=== PATIENT | female | born 1960 | race Caucasian/White ===

== ENCOUNTER → 2019-12-22 16:55 | Outpatient (CLI) | payer OTHER, SELFPAY ==
--- NOTE | ~2019-12-22 | XR_ITS ---
EXAMINATION: XR pelvis 1-2V EXAM DATE: 12/22/2019 17:31 INDICATION: Low back pain/hx of osteopenia TECHNIQUE: Pelvis frontal projection(s) obtained and reviewed. There is no prior study for compariso n. FINDINGS: There is mild symmetric bilateral hip and sacroiliac joint primary osteoarthritis. There ar e no acute fractures or dislocations identified. Sacrum, sacroiliac joints, sacral arcuate lines are intact. There is no subcutaneous gas. The soft tissue is unremarkable. There are no radiopaque f oreign bodies. IMPRESSION: Mild osteoarthritis. Reviewed, dictated and finalized at location A. IMPRESSION: Mild osteoarthritis.
--- NOTE | ~2019-12-22 | XR_ITS ---
EXAMINATION: XR lumbar spine min 4V EXAM DATE: 12/22/2019 17:31 INDICATION: Low back pain/hx of osteopenia TECHNIQUE: Lumber spine frontal, lateral, bilateral oblique projections. Coned down frontal and lat eral L5-S1 lumbar projections for interpretation. There is no prior study for comparison. FINDINGS: There are thin but intact L5 pars. The vertebral bodies are aligned in the AP dimension. Mo derate loss of the L5-S1 disc height. Otherwise mild lumbar disc disease. Mild to moderate lumbar fac et arthropathy. Mild thoracolumbar dextrocurvature. Paraspinal soft tissue is unremarkable. The verte bral body heights are maintained. Large amount of colonic stool. IMPRESSION: Mild to moderate spondylosis. Constipation. Reviewed, dictated and finalized at location A.
== END ==
PROVIDERS: Visit Provider Chiropractor
DX: M54.5 Low back pain (principal); M47.816 Spondylosis without myelopathy or radiculopathy, lumbar region; K59.00 Constipation, unspecified
CPT/HCPCS: 72110; 72170

== ENCOUNTER → 2020-06-06 04:59 | Outpatient (CLI) | payer OTHER, SELFPAY ==
[2020-06-06 19:03] LABS: SARS-CoV-2 RNA PCR Negative
== END ==
PROVIDERS: Visit Provider Internal Medicine Gastroenterology
DX: Z01.812 Encounter for preprocedural laboratory examination (principal); Z20.822 Contact with and (suspected) exposure to COVID-19
CPT/HCPCS: C9803; U0003; U0005

== ENCOUNTER → 2020-07-11 01:37 | Outpatient (CLI) | payer OTHER, SELFPAY ==
[2020-07-11 18:55] LABS: SARS-CoV-2 RNA PCR Negative
== END ==
PROVIDERS: PCP Family Medicine; Visit Provider Internal Medicine Gastroenterology
DX: Z01.812 Encounter for preprocedural laboratory examination (principal); Z20.822 Contact with and (suspected) exposure to COVID-19
CPT/HCPCS: C9803; U0003; U0005

== ENCOUNTER 2020-07-14 05:35 | Day surgery (SDC) | payer OTHER, SELFPAY ==
[2020-05-25 13:55] VITALS: BMI 22.4
[2020-07-04 09:33] VITALS: BMI 22.4
[2020-07-14 08:12] VITALS: BP 119/88; PULSE 61; RESP 16; TEMP 36.4; O2SAT 99; BMI 22.4
[2020-07-14] MEDS: LACTATED RINGERS 1,000 ML 150 ML IV CONT (08:35)
--- NOTE | 2020-07-14 08:56 | WPDANESEPPF ---
Anes - Initial Pre Proc Eval Procedure: Operation Date: 07/14/20 09:30 Proposed Procedures p Esophagogastroduodenoscopy - Mandeep Bailey MD Date/Time: 07/14/20 08:56 Surgeon: Mandeep Bailey MD Pre Op Diagnosis: Dysphagia Patient Data Age: 59 Gender: F Height: 5 ft 5 in Weight: 61.3 kg Last Vital Signs Temp 97.6 F 07/14/20 08:12 Pulse 61 07/14/20 08:12 Resp 16 07/14/20 08:12 BP 119/88 07/14/20 08:12 Pulse Ox 99 07/14/20 08:12 Allergies Allergy/AdvReac Type Severity Reaction Status Date / Time azithromycin Allergy Unknown Unknown Verified 07/14/20 08:10 Home Medications Medication Instructions Recorded Confirmed Type calcium carbonate 600 mg calcium 600 mg PO DAILY 04/08/19 07/14/20 History (1,500 mg) tablet cholecalciferol (vitamin D3) 75 3,000 unit PO DAILY 04/08/19 07/14/20 History mcg (3,000 unit) tablet phytonadione (vitamin K1) 5 mg 5 mg PO DAILY 04/13/20 07/14/20 History tablet fluticasone propionate [Flonase] 1 spray INTRANASAL DAILY PRN 05/25/20 07/14/20 History Patient hx anesthesia problems: none Family hx anesthesia problems: none PMFSH Past Medical History Medical History (Updated 05/11/20 @ 10:16 by Mandeep Bailey MD) Colon cancer screening 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 History of vaginal delivery x 3 Hyperlipidemia Osteopenia Vitamin D deficiency Surgical History Surgical History [place] teeth removed Family History Family History Mother Family history of osteoporosis Family history of malignant neoplasm of thyroid Family history of malignant neoplasm of breast in first degree relative, Onset Age: 64 Patient's mother is Sibling Asthma Family history of diabetes mellitus in first degree relative Grandparent Family history of alcoholism Father Family history of diabetes mellitus in first degree relative Patient's father is Diabetes mellitus Family history of type 2 diabetes mellitus, Onset Age: 76 Social History Social History Smoking status: Never smoker Second hand tobacco smoke exposure: No Alcohol intake: current Drinks per week: 1 Substance use: never Substance use type: does not use Living arrangements: with family Gender identity (if verbalized by the patient): Female Spiritual care concerns: No Anes - Eval Final PreProcedure Day of Procedure 07/14/20 08:56 Patient weight: normal Heart: regular rate and rhythm Lungs: clear to auscultation Airway: Mallampati scale class II Neurological: alert and oriented Last oral intake: >/= 8 hours ASA classification: II Emergent: no Anesthetic plan: proceed Anesthesia type and monitoring: general GIVS and standard monitoring Informed Consent: The patient's anesthetic plan and its attendant risks and benefits were discussed with the patient/family/POA. Questions were solicited and answers provided to the satisfaction of the patient/family/POA.
--- NOTE | 2020-07-14 09:29 | PM.HPGS ---
History of Present Illness History of Present Illness Consent: Risks, benefits, and alternatives have been discussed and questions answered. Patient agrees to proceed with procedure. Chief complaint: Dysphagia Narrative: Libertad Schulz is a 59 year old female with dysphagia Review of Systems Constitutional: Constitutional: Denies headache(s) and Denies weakness Eyes: Eyes: Denies blurry vision ENT: Reports Normal hearing present, Denies headache(s) and Denies neck pain Cardiovascular: Cardiovascular: Denies chest pain and Denies dyspnea Respiratory: Respiratory: Denies dyspnea Gastrointestinal: Gastrointestinal: Reports no additional gastrointestinal complaints Genitourinary: Genitourinary: Denies dysuria Musculoskeletal: Musculoskeletal: Denies neck pain Integumentary/Breasts: Skin/Breast: Denies dry skin Neurologic: Reports Normal hearing present, Denies headache(s) and Denies weakness Psychiatric: Psychiatric: Denies anxiety Endocrine: Endocrine: Denies change in body appearance Hematologic/Lymphatic: Hematologic/Lymphatic: Denies easy bleeding Allergic/Immunologic: Allergic/Immunologic: Denies urticaria PMF Past Medical History Medical History (Updated 07/14/20 @ 09:29 by Mandeep Bailey MD) Colon cancer screening Dysphagia 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 History of vaginal delivery x 3 Hyperlipidemia Osteopenia Vitamin D deficiency Surgical History Surgical History [place] teeth removed Family History Family History Mother Family history of osteoporosis Family history of malignant neoplasm of thyroid Family history of malignant neoplasm of breast in first degree relative, Onset Age: 64 Patient's mother is Sibling Asthma Family history of diabetes mellitus in first degree relative Grandparent Family history of alcoholism Father Family history of diabetes mellitus in first degree relative Patient's father is Diabetes mellitus Family history of type 2 diabetes mellitus, Onset Age: 76 Social History Social History Smoking status: Never smoker Second hand tobacco smoke exposure: No Alcohol intake: current Drinks per week: 1 Substance use: never Substance use type: does not use Living arrangements: with family Gender identity (if verbalized by the patient): Female Spiritual care concerns: No Meds Home Medications and Allergies Home Medications Medication Instructions Recorded Confirmed Type calcium carbonate 600 mg calcium 600 mg PO DAILY 04/08/19 07/14/20 History (1,500 mg) tablet cholecalciferol (vitamin D3) 75 3,000 unit PO DAILY 04/08/19 07/14/20 History mcg (3,000 unit) tablet phytonadione (vitamin K1) 5 mg 5 mg PO DAILY 04/13/20 07/14/20 History tablet fluticasone propionate [Flonase] 1 spray INTRANASAL DAILY PRN 05/25/20 07/14/20 History Allergies Allergy/AdvReac Type Severity Reaction Status Date / Time azithromycin Allergy Unknown Unknown Verified 07/14/20 08:10 Vital Signs Vital Signs - 24 hr 07/14/20 08:12 Temperature 97.6 F Pulse Rate 61 Respiratory Rate 16 Blood Pressure 119/88 Pulse Oximetry 99 Exam Const: General: comfortable and no acute distress HENMT: General nose exam: Normal nares present Eyes: General: appearance normal, both eyes and all related structures Neck: Neck: no JVD Resp: Auscultation: clear to auscultation bilaterally Cardio: Rate: regular rate Rhythm: regular rhythm GI: Inspection: non-distended GI Palp: Yes Soft to palpation Skin: General skin exam: normal color Neuro: General: gait normal Speech: normal speech Extrem: General: normal to inspection Psych: Mental Status: mental status grossly normal Assessment and Plan Assessment and pl
[2020-07-14] MEDS: BENZOCAINE (*SP) 60 ML SPRAY CAN (HURRICAINE) 1 SPRAY MUCOUS MEM (09:32)
[2020-07-14 09:41] VITALS: BP 121/68; PULSE 72; RESP 15; O2SAT 98
[2020-07-14 09:51] VITALS: BP 100/99; PULSE 57; RESP 23
[2020-07-14 10:01] VITALS: BP 102/69; PULSE 54; RESP 22; O2SAT 100
== END 2020-07-14 10:50 | disposition home or self-care (01) ==
PROVIDERS: PCP Family Medicine; Visit Provider Internal Medicine Gastroenterology
PROC: 0DJ08ZZ Inspection of Upper Intestinal Tract, Via Natural or Artificial Opening Endoscopic (ICD-10-PCS; CPT 43235; principal; 2020-07-14 09:30)
DX: R13.10 Dysphagia, unspecified (principal); K29.50 Unspecified chronic gastritis without bleeding; E06.3 Autoimmune thyroiditis; E78.5 Hyperlipidemia, unspecified; E55.9 Vitamin D deficiency, unspecified; M85.80 Other specified disorders of bone density and structure, unspecified site
CPT/HCPCS: 43239; 87081; 88305; J2704; J7120

== ENCOUNTER 2021-09-03 09:12 | Emergency (ER) | payer OTHER, SELFPAY ==
--- NOTE | 2021-09-03 09:20 | ED.SKABFB ---
HPI - Skin/Abscess/Foreign Bdy General Chief complaint: Skin/Abscess/Foreign Body Stated complaint: stung by insect right hand middle finger Time Seen by Provider: 09/03/21 09:22 Source: patient Mode of arrival: ambulatory Limitations: no limitations History of Present Illness HPI narrative: 61-year-old female presented for complaint of right middle finger pain and swelling after insect bite 3 days ago. She states that she reached into her hair when she was stung by an insect. Since then the finger has become increasingly swollen and painful. She has applied ice to the site but not taken anything for symptoms. Denies nausea, vomiting, fevers or chills. MD complaint: rash Related Data Home Medications Medication Instructions Recorded Confirmed calcium carbonate 600 mg calcium 600 mg PO DAILY 04/08/19 04/19/21 (1,500 mg) tablet (Calcium) cholecalciferol (vitamin D3) 75 3,000 unit PO DAILY 04/08/19 04/19/21 mcg (3,000 unit) tablet fluticasone propionate 50 1 spray intranasal DAILY PRN 05/25/20 04/19/21 mcg/actuation nasal Allergy Symptoms spray,suspension Allergies Allergy/AdvReac Type Severity Reaction Status Date / Time azithromycin Allergy Unknown Unknown Verified 04/19/21 09:19 Review of Systems Review of Systems: CONSTITUTIONAL: Denies body aches, fever, chills, or sweats. EYES: Denies visual changes, redness, or discharge. ENT: Denies rhinorrhea, congestion, sore throat, or otalgia. CARDIOVASCULAR: Denies chest pain, palpitations, or edema. RESPIRATORY: Denies cough or dyspnea. GASTROINTESTINAL: Denies abdominal pain, nausea, vomiting, or diarrhea. SKIN: reports red swollen finger MUSCULOSKELETAL: Denies back pain, joint pain, or myalgia. NEUROLOGIC: Denies headache, numbness, tingling, or weakness. [facility] Past Medical History Medical History Colon cancer screening Dyspepsia Dysphagia Gastritis determined by biopsy 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 History of vaginal delivery x 3 Hyperlipidemia Osteopenia Vitamin D deficiency Surgical History Surgical History [place] teeth removed Family History Family History Mother Family history of osteoporosis Family history of malignant neoplasm of thyroid Family history of malignant neoplasm of breast in first degree relative, Onset Age: 64 Patient's mother is Sibling Asthma Family history of diabetes mellitus in first degree relative Grandparent Family history of alcoholism Father Family history of diabetes mellitus in first degree relative Patient's father is Diabetes mellitus Family history of type 2 diabetes mellitus, Onset Age: 76 Social History Social History Smoking status: Never smoker Second hand tobacco smoke exposure: No Alcohol intake: current Drinks per week: 1 Alcohol use details: 1-2 drinks per month Substance use: never Substance use type: does not use Gender identity (if verbalized by the patient): Female Spiritual care concerns: No Comments At time of signature, I have reviewed and agree with nursing past medical, surgical, social and family history unless otherwise noted. Please see nursing chart for further information. There is no relevant family history pertinent to the presenting complaint Exam Narrative: GENERAL: Well-appearing EYES: conjunctivae clear, and EOMI. ENT: Mucous membranes moist. Oropharynx without edema, erythema or lesions. CHEST: Clear to auscultation. No respiratory distress. HEART: Regular rate and rhythm. SKIN: Warm, dry. Right hand 3rd digit moderate swelling and erythema to palmar surface, no streaking or fluctuance, limited ROM due to swelling; cap refill <3seconds, sensation intact NEURO: Alert and orient
[2021-09-03 09:21] VITALS: BP 119/66; PULSE 91; RESP 16; TEMP 36.8; O2SAT 100
== END 2021-09-03 09:39 | disposition home or self-care (01) ==
PROVIDERS: Emergency Provider Nurse Practitioner Family; PCP Family Medicine
DX: T63.481A Toxic effect of venom of other arthropod, accidental (unintentional), initial encounter (principal); E06.3 Autoimmune thyroiditis; E78.5 Hyperlipidemia, unspecified; M85.80 Other specified disorders of bone density and structure, unspecified site; E55.9 Vitamin D deficiency, unspecified
CPT/HCPCS: 99213; G0463

== ENCOUNTER 2021-10-04 13:05 | Emergency (ER) | payer OTHER, SELFPAY ==
[2021-10-04 13:14] VITALS: BP 113/71; PULSE 70; RESP 16; TEMP 36.9; O2SAT 100
--- NOTE | 2021-10-04 13:30 | ED.FEMALEGU ---
HPI - Female Genitourinary General Chief complaint: Urogenital-Female Stated complaint: uti symptoms Time Seen by Provider: 10/04/21 13:30 Source: patient, RN notes reviewed and old records reviewed Mode of arrival: ambulatory Limitations: no limitations History of Present Illness HPI Narrative: 61-year-old female with a history of UTIs presents to the [facility] with complaints of urgency, frequency and funny feeling suprapubic. States all her symptoms started yesterday. Reports trying to call her urologist, Dr. Pedraza unable to contact, states she believes they are on vacation MD elicited complaint: UTI Pertinent past history: recurrent UTIs Onset (ago): day(s) (1) Location of symptoms: suprapubic Severity: mild Quality of pain: dull Urinary symptoms: Dysuria, Urgency and Frequency Treatment prior to arrival: none Related Data Home Medications Medication Instructions Recorded Confirmed calcium carbonate 600 mg calcium 600 mg PO DAILY 04/08/19 04/19/21 (1,500 mg) tablet (Calcium) cholecalciferol (vitamin D3) 75 3,000 unit PO DAILY 04/08/19 04/19/21 mcg (3,000 unit) tablet fluticasone propionate 50 1 spray intranasal DAILY PRN 05/25/20 04/19/21 mcg/actuation nasal Allergy Symptoms spray,suspension Allergies Allergy/AdvReac Type Severity Reaction Status Date / Time azithromycin Allergy Unknown Unknown Verified 04/19/21 09:19 Review of Systems Review of Systems: All systems reviewed & are unremarkable except as noted in HPI and below Constitutional: Constitutional: Reports no additional constitutional complaints, Denies chills and Denies fatigue Eyes: Eyes: Reports no additional eye complaints ENT: Reports system reviewed and no additional complaints, except as documented Cardiovascular: Cardiovascular: Reports no additional cardiovascular complaints Respiratory: Respiratory: Reports no additional respiratory complaints Gastrointestinal: Gastrointestinal: Reports no additional gastrointestinal complaints, Denies abdominal pain, Denies diarrhea, Denies nausea and Denies vomiting Genitourinary: Genitourinary: Reports as per HPI (Urinary frequency), Reports hematuria, Reports dysuria, Denies flank pain and Denies vaginal discharge Musculoskeletal: Musculoskeletal: Reports no additional musculoskeletal complaints and Denies back pain Integumentary/Breasts: Skin/Breast: Reports system reviewed and no additional complaints, except as docu Neurologic: Reports system reviewed and no additional complaints, except as documented Psychiatric: Psychiatric: Reports no additional psychiatric complaints Endocrine: Endocrine: Denies fatigue Allergic/Immunologic: Allergic/Immunologic: Reports no additional allergic/immunologic complaints PMF Past Medical History Medical History Colon cancer screening Dyspepsia Dysphagia Gastritis determined by biopsy 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 History of vaginal delivery x 3 Hyperlipidemia Osteopenia Vitamin D deficiency Surgical History Surgical History [place] teeth removed Family History Family History Mother Family history of osteoporosis Family history of malignant neoplasm of thyroid Family history of malignant neoplasm of breast in first degree relative, Onset Age: 64 Patient's mother is Sibling Asthma Family history of diabetes mellitus in first degree relative Grandparent Family history of alcoholism Father Family history of diabetes mellitus in first degree relative Patient's father is Diabetes mellitus Family history of type 2 diabetes mellitus, Onset Age: 76 Social History Social History Smoking status: Never smoker Second hand tobacco smoke exposure: No Alcohol intake: current
== END 2021-10-04 13:42 | disposition home or self-care (01) ==
PROVIDERS: Emergency Provider Nurse Practitioner; PCP Family Medicine
DX: N39.0 Urinary tract infection, site not specified (principal); E06.3 Autoimmune thyroiditis; E78.5 Hyperlipidemia, unspecified; M81.0 Age-related osteoporosis without current pathological fracture; E55.9 Vitamin D deficiency, unspecified
CPT/HCPCS: 81003; 87077; 87086; 87186; 99213; G0463

== ENCOUNTER 2021-11-06 09:07 | Outpatient (CLI) | payer OTHER, SELFPAY ==
--- NOTE | ~2021-11-06 | DEXA_ITS ---
Bone Density Report Name: DEANNA JUSTIN Age: 61 Sex: Female Ethnicity: White Date of : 1960 Indication: postmenopausal; screening for osteoporosis; height loss; Referring Provider: ABHAY JIMÉNEZ Study: Bone densitometry was performed. Exam Date: November 06, 2021 Accession number: [id number] Bone Density: Region BMD T-score Z-score Classification AP Spine(L1-L4) 0.769 -2.5 -1.2 Osteoporosis Femoral Neck (Left) 0.555 -2.7 -1.4 Osteoporosis Total Hip (Left) 0.667 -2.3 -1.4 Osteopenia Femoral Neck (Right) 0.575 -2.5 -1.2 Osteoporosis Total Hip (Right) 0.660 -2.3 -1.4 Osteopenia Total Hip Mean 0.663 -2.3 -1.4 Osteopenia World Health Organization criteria for BMD impression classify patients as: Normal (T-score at or above -1.0), Osteopenia (T-score between -1.0 and -2.5), or Osteoporosis (T-score at or below -2.5). 10-year Fracture Risk: FRAX not reported because: Some T-score for Spine Total or Hip Total or Femoral Neck at or below -2.5 Treated for osteoporosis Clinical Information Provided by Patient: Is being treated for osteoporosis Has used the following medications: Vitamin D Has the following medical conditions: pavithra Patient maximum height was 66 Drinks caffeinated beverages Onset of menses at age 16 Number of children 3 Impression: The patient has osteoporosis, based on the Left Femoral Neck T-score. Discussion: It is important to ask patients whether they are taking their medications and to encourage continued and appropriate compliance with their osteoporosis therapies to reduce fracture risk. It is also important to review their risk factors and encourage appropriate calcium and vitamin D intakes, exercise, fall prevention and other lifestyle measures. Follow-Up: Consider a repeat BMD and Vertebral Fracture Assessment (VFA) exam in 2 years or sooner if medically necessary, to reassess this patient's status. Reported by: KWESI on 11/06/2021 9:27:00 AM. Reviewed, dictated and finalized at location ALeanne PERKINS
== END 2021-11-06 09:08 | disposition home or self-care (01) ==
LOC: ANHIMG 09:09
PROVIDERS: PCP Family Medicine; Visit Provider Student in an Organized Health Care Education/Training Program
DX: Z78.0 Asymptomatic menopausal state (principal); M81.0 Age-related osteoporosis without current pathological fracture
CPT/HCPCS: 77080

== ENCOUNTER 2021-11-28 13:41 | Outpatient (CLI) | payer OTHER, SELFPAY ==
--- NOTE | ~2021-11-28 | CT_ITS ---
EXAMINATION: CT sinus wo con DATE: 11/28/2021 14:58 INDICATION: Sinusitis TECHNIQUE: Computed tomography (CT) of the paranasal sinuses was performed without intravenous contra st. The dose-length product was 306.67 mGy-cm. COMPARISON: CT dated 06/16/2014 FINDINGS: No significant mucosal thickening. No air-fluid levels. Ostiomeatal units are patent. Leftw gustavo nasal septal deviation. Mastoids are pneumatized. No mucoperiosteal reaction. IMPRESSION: 1. No significant sinus disease. Reviewed, dictated and finalized at location B.
== END 2021-11-28 13:42 | disposition home or self-care (01) ==
PROVIDERS: PCP Family Medicine; Visit Provider Otolaryngology
DX: J32.9 Chronic sinusitis, unspecified (principal); R51.9 Headache, unspecified; R44.8 Other symptoms and signs involving general sensations and perceptions; R09.82 Postnasal drip; J34.2 Deviated nasal septum; J34.3 Hypertrophy of nasal turbinates; J34.89 Other specified disorders of nose and nasal sinuses
CPT/HCPCS: 70486

== ENCOUNTER 2021-12-07 10:46 | Emergency (ER) | payer OTHER, SELFPAY ==
[2021-12-07 11:00] VITALS: BP 108/70; PULSE 65; RESP 16; TEMP 36.6; O2SAT 100
--- NOTE | 2021-12-07 11:15 | ED.FEMALEGU ---
HPI - Female Genitourinary General Chief complaint: Urogenital-Female Stated complaint: possible UTI Time Seen by Provider: 12/07/21 11:13 Source: patient and RN notes reviewed Mode of arrival: ambulatory Limitations: no limitations History of Present Illness HPI Narrative: 61-year-old female with history of urinary tract infection presents with concern for dysuria, frequency, suprapubic pressure that started overnight. She reports she has a urologist, but has difficulty getting into the urologist. She reports she was treated with Bactrim for urinary tract infection in October. She reports she has a prophylactic prescription for Cipro that she takes after intercourse. Reports she does not know if that is effective or not. She reports her urologist usually gives her Macrobid. She denies fever, body aches, chills, sweats, abdominal pain, back pain, nausea or vomiting. MD elicited complaint: UTI Related Data Home Medications Medication Instructions Recorded Confirmed calcium carbonate 600 mg calcium 600 mg PO DAILY 04/08/19 12/07/21 (1,500 mg) tablet (Calcium) cholecalciferol (vitamin D3) 75 3,000 unit PO DAILY 04/08/19 12/07/21 mcg (3,000 unit) tablet fluticasone propionate 50 1 spray intranasal DAILY PRN 05/25/20 12/07/21 mcg/actuation nasal Allergy Symptoms spray,suspension Allergies Allergy/AdvReac Type Severity Reaction Status Date / Time azithromycin Allergy Unknown Diarrhea Verified 12/07/21 11:12 Review of Systems Review of Systems: CONSTITUTIONAL: Denies malaise, chills, sweats, or fever. CARDIOVASCULAR: Denies chest pain, palpitations, or edema. RESPIRATORY: Denies cough or dyspnea. GASTROINTESTINAL: Denies abdominal pain, nausea, vomiting, diarrhea GENITOURINARY: Reports dysuria, frequency, urgency, suprapubic pressure. Denies flank pain or hematuria. SKIN: Denies rash or itching. MUSCULOSKELETAL: Denies back pain or myalgia. All systems reviewed & are unremarkable except as noted in HPI and below PMFSH Past Medical History Medical History (Updated 12/07/21 @ 11:21 by Kya Elizabeth NP) Colon cancer screening Dyspepsia Dysphagia Gastritis determined by biopsy 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 History of vaginal delivery x 3 Hyperlipidemia Hyperlipidemia Osteopenia Vitamin D deficiency Surgical History Surgical History [place] teeth removed Family History Family History Mother Family history of osteoporosis Family history of malignant neoplasm of thyroid Family history of malignant neoplasm of breast in first degree relative, Onset Age: 64 Patient's mother is Sibling Asthma Family history of diabetes mellitus in first degree relative Grandparent Family history of alcoholism Cerebrovascular accident Father Family history of diabetes mellitus in first degree relative Patient's father is Diabetes mellitus Family history of type 2 diabetes mellitus, Onset Age: 76 Hypertension Heart disease Sibling Diabetes mellitus Depression Daughter Thyroid disorder Social History Social History Smoking status: Never smoker Second hand tobacco smoke exposure: No Alcohol intake: current Drinks per week: 1 Alcohol use details: 1-2 drinks per month Substance use: never Substance use type: does not use Gender identity (if verbalized by the patient): Female Spiritual care concerns: No Comments At time of signature, agree with nursing past medical, surgical, social and family history. There is no relevant family history pertinent to the presenting complaint Exam Narrative: GENERAL: Well-appearing, well-nourished, and in no acute distress. HEAD: Normocephalic. EYES: PERRLA, conjunctivae clear. NECK: Supple. No lymphadenopathy CHEST: Clear to auscultation.
== END 2021-12-07 11:25 | disposition home or self-care (01) ==
PROVIDERS: Emergency Provider Nurse Practitioner; PCP Family Medicine
DX: R30.0 Dysuria (principal); R35.0 Frequency of micturition; R39.15 Urgency of urination; R10.30 Lower abdominal pain, unspecified; E06.3 Autoimmune thyroiditis; M85.80 Other specified disorders of bone density and structure, unspecified site; E55.9 Vitamin D deficiency, unspecified
CPT/HCPCS: 81003; 87077; 87086; 87186; 99213; G0463

== ENCOUNTER 2022-04-05 01:14 | Day surgery (SDC) | payer OTHER, SELFPAY ==
--- NOTE | 2022-01-07 08:26 | PC.NURSE ---
Report to the Outpatient Waiting Room, entrance under the green pavilion located off [facility], at time _0730_ on date _01/08/22. Planned Procedure Time: _0930_. Time changes happen often and if your time is changed the preop area will call you the afternoon before. - You and your visitor will be asked to self-screen and do not enter if you have any COVID symptoms. - We encourage only one visitor and NO visitors under age 16 are allowed at this time. Your visitor will receive communication by the phone number that is given day of service. - The patient visitor is requested to social distance or may leave the building when not with patient due to restrictions. - A mask is required within the hospital. Patients may have clear liquids (water, carbonated beverages, clear teas, apple juice) until 3 hours prior to surgery with a maximum of 20 ounces. - No food from midnight until time of surgery - Infants may have breast milk until 4 hours before surgery, formula 6 hours prior to surgery. - Children will be allowed to drink immediately following surgery. If applicable, please bring a bottle or sippy cup to assist with drinking. Juice, water, soda, and popsicles are readily available. For infants on formula, please bring formula the day of surgery. Pacifiers are allowed. Take the following medications with a SIP of water the morning of surgery: NONE Medications to discontinue per physician __VITAMIN Date to take last dose 01/07/22 Please no make-up, nail [place], hairspray, perfume, deodorant, or body powder the day of surgery. No jewelry (including any body piercings) or valuables the day of surgery, leave them at home. Please take a shower or bath the night before, or the morning of, surgery with an antibacterial soap. Wear comfortable, loose fitting clothing. Children are encouraged to wear pajamas. - Jewelry must be removed prior to entering the operating room. Rings and piercings that are not removed may be cut off. - The hospital will not accept responsibility for valuables. - Please leave all valuables, including medications, at home the day of surgery. If you are going home after surgery, a licensed courtesy driver must drive you home. - NO public transportation without another adult. - We recommend that an adult stay with you for 24 hours following discharge. - We also recommend that you do not drive, make important decision, drink alcoholic beverages, or take any drugs that were not prescribed by your health care provider for at least 24 hours after your discharge time. For Pediatric surgeries, we recommend two adults accompany the child home. Follow any additional instructions given to you from your surgeon. If you or anyone in your household have experienced Covid symptoms in the past week, please notify your surgeon or the nurse liaison at the phone number below for possible testing. Telephone instructions given to __PATIENT and asked if any additional questions and then verbalized understanding. Patient advised to call surgeon office or pre surgery nurse liaison [phone] if any additional questions.
--- NOTE | 2022-03-26 14:50 | SUR.PREOP ---
Report to the Outpatient Waiting Room, entrance under the green pavilion located off [facility], at time 0600 on date 04/05/22. Planned Procedure Time: 0730. Time changes happen often and if your time is changed the preop area will call you the afternoon before. - You and your visitor will be asked to self-screen and do not enter if you have any COVID symptoms. - Only one visitor is requested with a max of two and NO children visitors are allowed at this time. - The patient visitor may be requested to leave or wait in car when not with patient due to distancing restrictions. - A mask is optional within the hospital at this time. Patients may have clear liquids (water, carbonated beverages, clear teas, apple juice) until 3 hours prior to surgery with a maximum of 20 ounces. - NO CLEAR LIQUIDS AFTER 0530 - No food from midnight until time of surgery - Infants may have breast milk until 4 hours before surgery, infant formula 6 hours prior to surgery. - Children will be allowed to drink immediately following surgery. If applicable, please bring a bottle or sippy cup to assist with drinking. Juice, water, soda, and popsicles are readily available. For infants on formula, please bring formula the day of surgery. Pacifiers are allowed. DO NOT STOP ANY OF YOUR OTHER PRESCRIPTION MEDICATIONS PRIOR TO SURGERY ?EXCEPT THE FOLLOWING Medications to discontinue per physician VITAMIN Date to take last dose 04/02/22 Please no make-up, nail syriac, hairspray, perfume, deodorant, or body powder the day of surgery. No jewelry (including any body piercings) or valuables the day of surgery, leave them at home. Please take a shower or bath the night before, or the morning of, surgery with an antibacterial soap. Wear comfortable, loose fitting clothing. Children are encouraged to wear pajamas. - Jewelry must be removed prior to entering the operating room. Rings and piercings that are not removed may be cut off. - The hospital will not accept responsibility for valuables. - Please leave all valuables, including medications, at home the day of surgery. If you are going home after surgery, a licensed driver starting gate must drive you home. - NO public transportation without another adult if you receive anesthesia. - We recommend that an adult stay with you for 24 hours following discharge. - We also recommend that you do not drive, make important decision, drink alcoholic beverages, or take any drugs that were not prescribed by your health care provider for at least 24 hours after your discharge time. For Pediatric surgeries, we recommend two adults accompany the child home. Follow any additional instructions given to you from your surgeon. If you or anyone in your household have experienced Covid symptoms in the past week, please notify your surgeon or the nurse liaison at the phone number below for possible testing. Telephone instructions given to DEANNA JUSTIN and asked if any additional questions and then verbalized understanding. Patient advised to call surgeon office or pre surgery nurse liaison [phone] if any additional questions.
--- NOTE | 2022-04-04 17:22 | PM.IMHP ---
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 History of vaginal delivery x 3 Hyperlipidemia Hyperlipidemia Osteopenia Vitamin D deficiency Surgical History Surgical History [place] teeth removed Family History Family History Mother Family history of osteoporosis Family history of malignant neoplasm of thyroid Family history of malignant neoplasm of breast in first degree relative, Onset Age: 64 Patient's mother is Sibling Asthma Family history of diabetes mellitus in first degree relative Grandparent Family history of alcoholism Cerebrovascular accident Father Family history of diabetes mellitus in first degree relative Patient's father is Diabetes mellitus Family history of type 2 diabetes mellitus, Onset Age: 76 Hypertension Heart disease Sibling Diabetes mellitus Depression Daughter Thyroid disorder Social History Social History Smoking status: Never smoker Second hand tobacco smoke exposure: No Alcohol intake: current Drinks per week: 1 Alcohol use details: 1 PER MONTH Substance use: never Substance use type: does not use Living arrangements: with family Gender identity (if verbalized by the patient): Female Spiritual care concerns: No Meds Home Medications and Allergies Home Medications Medication Instructions Recorded Confirmed Type calcium carbonate 600 mg calcium 600 mg PO DAILY 04/08/19 01/07/22 History (1,500 mg) tablet (Calcium) cholecalciferol (vitamin D3) 75 3,000 unit PO DAILY 04/08/19 01/07/22 History mcg (3,000 unit) tablet fluticasone propionate 50 1 spray intranasal DAILY PRN 05/25/20 01/07/22 History mcg/actuation nasal Allergy Symptoms spray,suspension omeprazole 40 mg capsule,delayed 40 mg PO DAILY #30 caps 10/24/21 01/07/22 Rx release alendronate 70 mg tablet 70 mg PO WEEKLY #12 tabs 01/30/22 01/30/22 Rx Allergies Allergy/AdvReac Type Severity Reaction Status Date / Time azithromycin Allergy Unknown Diarrhea Verified 01/30/22 14:32 Exam Narrative: septal deviation turbinate hypertrophy Assessment and Plan Assessment and plan (1) Hypertrophy of both inferior nasal turbinates: Code(s): J34.3 - Hypertrophy of nasal turbinates Status: Acute Assessment and Plan: plan endoscopic assisted septoplasty turbinate reduction risks discussed including bleeding infection septal perforation failure to resolve symptoms need for further procedures. Need for time off work postoperative pain patient voiced understanding agreed. (2) Nasal obstruction: Code(s): J34.89 - Other specified disorders of nose and nasal sinuses Status: Acute (3) Nasal septal deviation: Code(s): J34.2 - Deviated nasal septum Status: Acute
[2022-04-05] VITALS (8 sets, daily range): BP systolic 96–119; BP diastolic 64–74; PULSE 66–78; RESP 12–16; TEMP 36.2–36.8; O2SAT 96–100; BMI 22.8
--- NOTE | 2022-04-05 07:14 | WPDHPUPDATE1 ---
History and Physical Update Update Date/Time: 04/05/22 07:14 History and Physical has been reviewed, including an updated exam of the patient. There are NO changes in the patient's condition. Risks, benefits, and alternatives have been discussed and questions answered. Patient agrees to proceed with procedure.
[2022-04-05] MEDS: ACETAMINOPHEN 500 MG TABLET 1000 MG PO (08:30)
[2022-04-05] MEDS: LACTATED RINGERS 1,000 ML 30 ML IV CONT ×2 (08:38→11:38)
--- NOTE | 2022-04-05 08:50 | WPDANESEPPF ---
Anes - Initial Pre Proc Eval Procedure: Operation Date: 04/05/22 10:00 Proposed Procedures p Endoscopic Septoplasty - Todd Falk MD s Bilateral Inferior Turbinectomy with Outfracture - Todd Falk MD Date/Time: 04/05/22 08:50 Surgeon: Todd Falk MD Pre Op Diagnosis: Chronic Sinusitis Patient Data Age: 61 Gender: F Height: 1.63 m Weight: 60.4 kg Last Vital Signs Temp 36.8 C 04/05/22 08:11 Pulse 72 04/05/22 08:11 Resp 16 04/05/22 08:11 BP 96/66 L 04/05/22 08:11 Pulse Ox 99 04/05/22 08:11 O2 Del Method Room Air 04/05/22 08:11 Allergies Allergy/AdvReac Type Severity Reaction Status Date / Time azithromycin Allergy Intermediate Diarrhea Verified 04/05/22 08:25 Home Medications Medication Instructions Recorded Confirmed Type calcium carbonate 600 mg calcium 600 mg PO DAILY 04/08/19 04/05/22 History (1,500 mg) tablet (Calcium) cholecalciferol (vitamin D3) 75 3,000 unit PO DAILY 04/08/19 04/05/22 History mcg (3,000 unit) tablet fluticasone propionate 50 1 spray intranasal DAILY PRN 05/25/20 04/05/22 History mcg/actuation nasal Allergy Symptoms spray,suspension omeprazole 40 mg capsule,delayed 40 mg PO DAILY #30 caps 10/24/21 04/05/22 Rx release alendronate 70 mg tablet 70 mg PO WEEKLY #12 tabs 01/30/22 04/05/22 Rx Patient hx anesthesia problems: none Family hx anesthesia problems: none Results Review: All pre-operative results and documents have been reviewed as part of the pre-operative evaluation. 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 History of vaginal delivery x 3 Hyperlipidemia Hyperlipidemia Osteopenia Vitamin D deficiency Surgical History Surgical History Spangle teeth removed Family History Family History Mother Family history of osteoporosis Family history of malignant neoplasm of thyroid Family history of malignant neoplasm of breast in first degree relative, Onset Age: 64 Patient's mother is Sibling Asthma Family history of diabetes mellitus in first degree relative Grandparent Family history of alcoholism Cerebrovascular accident Father Family history of diabetes mellitus in first degree relative Patient's father is Diabetes mellitus Family history of type 2 diabetes mellitus, Onset Age: 76 Hypertension Heart disease Sibling Diabetes mellitus Depression Daughter Thyroid disorder Social History Social History Smoking status: Never smoker Second hand tobacco smoke exposure: No Alcohol intake: current Drinks per week: 1 Alcohol use details: 1 PER MONTH Substance use: never Substance use type: does not use Living arrangements: with family Gender identity (if verbalized by the patient): Female Spiritual care concerns: No Anes - Eval Final PreProcedure Day of Procedure 04/05/22 08:50 Patient weight: normal Heart: regular rate and rhythm Lungs: clear to auscultation Airway: Mallampati scale class II and special considerations retrognathia Last oral intake: >/= 8 hours ASA classification: I Emergent: no Anesthesia type and monitoring: general ETT and standard monitoring Results Review: All pre-operative results and documents have been reviewed as part of the pre-operative evaluation. Informed Consent: The patient's anesthetic plan and its attendant risks and benefits were discussed with the patient/family/POA. Questions were solicited and answers provided to the satisfaction of the patient/family/POA.
--- NOTE | 2022-04-05 09:23 | WPDHPUPDATE1 ---
History and Physical Update Update Date/Time: 04/05/22 09:23 Also plan on outfracturing the inferior turbinates bilaterally
[2022-04-05] MEDS: ceFAZolin 2 GM/D5W 50 ML 2 GM/50 ML BAG IVPB (09:38)
[2022-04-05] MEDS: OXYMETAZOLINE HCL 0.05% NAS 15 ML BTL (*BKC) 1 SPRAY NASAL (09:53)
[2022-04-05] MEDS: LIDO 1%/EPINEPHRINE 1:100,000 20 ML VIAL INFILTRATE (09:54)
--- NOTE | 2022-04-05 11:29 | SUR.OPER ---
ebl 30
[2022-04-05] MEDS: MUPIROCIN 2% OINT 22 GM TUBE 1 APPLIC EACH NARE (11:35)
--- NOTE | 2022-04-05 12:05 | P.OP_ITS ---
Procedure Note - Detailed Date of Procedure 04/05/22 Pre-op Diagnosis Deviation turbinate hypertrophy nasal obstruction nasal congestion Post-op Diagnosis Same Procedure Performed endoscopic assisted septoplasty inferior turbinate submucosal reduction with outfracture Surgeon Todd Falk MD Anesthesia General Indications see above Findings severely deviated septum mid vault to the left really good straightening the nose appeared a bit loose excess cartilage was trimmed placed back in the septum adding firmness. Significant L strut greater than 1.5 cm was left throughout the nasal passage. A no complications no perforations touching each turbinates well reduced. Description of Procedure Patient identified consent verified. Patient brought operating. Time-out performed. General anesthesia induced endotracheal tube secured airway. Patient prepped draped position. Second time-out performed. Afrin-soaked pledgets placed in the nose allowed to sit for 5 minutes. Pledgets then removed 0 degree endoscope utilized 15 cc 1% lidocaine 1 100,000 parts epinephrine injected deep nasal septum all not deep but nasal septum bilaterally in the submucosal plane as well as in the anterior heads of the inferior turbinates. Turbinates reduced submucosal plane with microdebrider 2 mm blade then outfractured. Redstone incision made left-sided left nasal septal flap elevated with 7 [place]an suction tear over the severe spur. Right nasal septal flap elevated no complications. There was a small tear in the right anterior nasal septum not touching any other tear on the left. Deviated septum removed c ombination Aylin forceps Ike Cerratoton forceps osteotome. Cartilage trimmed straightened placed back and add some structure and support but again a significant L strut 1.5-2 cm was left throughout. The septum a Navneet incision was then closed with 3 interrupted 5 0 fast gut sutures. Zimmerman splints were then placed right 1 trim sutured anteriorly using a 3-0 mattressed nylon suture. Patient tolerated the procedure well no complications blood loss 20 cc I performed all dictated portions care the patient was given Anesthesiology. Estimated Blood Loss -30.0 Packing No Pathology None sent Complications No immediate complications Condition Stable Disposition PACU [facility] Billing Surgery - Charge Forward: Surgery Billing
[2022-04-05] MEDS: oxyCODONE HCL (*CRX) 5 MG TAB IR PO (13:22)
[2022-04-05] MEDS: ONDANSETRON HCL ODT 4 MG TABLET PO (13:54)
== END 2022-04-05 14:10 | disposition home or self-care (01) ==
PROVIDERS: PCP Family Medicine; Visit Provider Otolaryngology
PROC: (CPT 30520; principal; 2022-04-05 10:00)
PROC: (CPT 30520; 2022-04-05 10:00)
DX: J34.2 Deviated nasal septum (principal); J34.3 Hypertrophy of nasal turbinates; J34.89 Other specified disorders of nose and nasal sinuses; E55.9 Vitamin D deficiency, unspecified; M85.80 Other specified disorders of bone density and structure, unspecified site
CPT/HCPCS: 30520; 30140; A9270; J0690; J1100; J1170; J2250; J2405; J2704; J3010; J7120

== ENCOUNTER 2023-01-13 13:24 | Outpatient (CLI) | payer OTHER, SELFPAY ==
--- NOTE | ~2023-01-13 | MMUS_ITS ---
EXAMINATION: MM diagnostic gama BI w melany, US breast LT limited HISTORY: Palpable lump in the upper outer quadrant left breast, history of left breast cancer TECHNIQUE: Craniocaudal, mediolateral, and mediolateral oblique 3-D tomosynthesis images of the breas ts were performed and synthetic 2-D images were generated. CAD analysis was submitted and interpreted . High resolution limited left breast ultrasound was performed. COMPARISON: 01/16/2022, 12/15/2020, 12/10/2019 BREAST PARENCHYMAL COMPOSITION: There are scattered areas of fibroglandular density. FINDINGS: MAMMOGRAPHIC FINDINGS: Left breast: Lumpectomy changes are present in the upper outer quadrant of the left breast. There is a 1.5 cm low-density, obscured mass in the outer breast at the 3:00 location no suspicious mass, calc ification, or architectural distortion are identified. There has been no suspicious interval change., 5 cm from the nipple which appears stable compared to the prior examinations. Right breast: Biopsy markers are noted at three different sites in the right breast. No suspicious ma ss, calcification, or architectural distortion are identified. There has been no suspicious interval change. ULTRASOUND: There is a 1.4 x 0.8 cm cyst at the 2:00 location 5 cm from the nipple in the left breast correspondi ng to the palpable abnormality of concern. No suspicious cystic or solid mass is identified. IMPRESSION: 1. No mammographic or sonographic evidence of malignancy. 2. Recommend routine screening mammography in one year. BI-RADS Category 2: Benign finding(s). Reviewed, dictated and finalized at location A. LEAD IMPRESSION: 1. No mammographic or sonographic evidence of malignancy. 2. Recommend routine screening mammography in one year. BI-RADS Category 2: Benign finding(s).
== END 2023-01-13 13:25 | disposition home or self-care (01) ==
LOC: ANHIMG 13:25
PROVIDERS: PCP Family Medicine; Visit Provider Obstetrics & Gynecology
DX: N63.20 Unspecified lump in the left breast, unspecified quadrant (principal)
CPT/HCPCS: 76642; 77062; 77066; G0279

== ENCOUNTER 2023-01-18 09:34 | Emergency (ER) | payer OTHER, SELFPAY ==
[2023-01-18 09:46] VITALS: BP 112/77; PULSE 78; RESP 16; TEMP 36.7; O2SAT 100
--- NOTE | 2023-01-18 09:52 | ED.FEMALEGU ---
HPI - Female Genitourinary General Chief complaint: Urogenital-Female Stated complaint: UTI SYMPTOMS Source: patient and RN notes reviewed Mode of arrival: ambulatory Limitations: no limitations History of Present Illness HPI Narrative: 62 y/o female presented for c/o burning with urination and frequency since yesterday. Endorses frequent UTIs her entire life, mostly after sexual intercourse. Has been taking Uqora for over one year, and reports significant reduction in UTIs after intercourse. Denies abdominal pain, flank pain, hematuria, n/v/d/f/c. Related Data Home Medications Medication Instructions Recorded Confirmed calcium carbonate 600 mg calcium 600 mg PO DAILY 04/08/19 01/18/23 (1,500 mg) tablet (Calcium) cholecalciferol (vitamin D3) 75 3,000 unit PO DAILY 04/08/19 01/18/23 mcg (3,000 unit) tablet Allergies Allergy/AdvReac Type Severity Reaction Status Date / Time azithromycin Allergy Intermediate Diarrhea Verified 01/18/23 09:45 Review of Systems Review of Systems: CONSTITUTIONAL: Denies body aches, fever, chills, or sweats. CARDIOVASCULAR: Denies chest pain, palpitations, or edema. RESPIRATORY: Denies cough or dyspnea. GASTROINTESTINAL: Denies abdominal pain, nausea, vomiting, or diarrhea. GENITOURINARY: Reports dysuria, frequency, urgency, hematuria, denies flank pain SKIN: Denies rash, itching, or wounds. MUSCULOSKELETAL: Denies back pain or myalgia. 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 History of vaginal delivery x 3 Hyperlipidemia Hyperlipidemia Vitamin D deficiency Surgical History Surgical History H/O sinus surgery deviated septum 04/05/22 Schneider teeth removed Family History Family History Mother Family history of osteoporosis Family history of malignant neoplasm of thyroid Family history of malignant neoplasm of breast in first degree relative, Onset Age: 64 Patient's mother is Sibling Asthma Family history of diabetes mellitus in first degree relative Grandparent Family history of alcoholism Cerebrovascular accident Father Family history of diabetes mellitus in first degree relative Patient's father is Diabetes mellitus Family history of type 2 diabetes mellitus, Onset Age: 76 Hypertension Heart disease Sibling Diabetes mellitus Depression Daughter Thyroid disorder Social History Social History Smoking status: Never smoker Second hand tobacco smoke exposure: No Alcohol intake: former Drinks per week: 1 Alcohol use details: 1 PER MONTH Substance use: never Substance use type: does not use Lack of Transportation: No Lack of Food: Never True Current Housing: I Have Housing Concerned About Future Housing: No Difficulty Paying Gas/Electric Bills: No Difficulty Paying for Meds: No Currently Unemployed: No Education: Bachelor's Degree Difficulty w/ Childcare or Family Care: No Living arrangements: with family Gender identity (if verbalized by the patient): Female Spiritual care concerns: No Comments At time of signature, I have reviewed and agree with nursing past medical, surgical, social and family history unless otherwise noted. Please see nursing chart for further information. There is no relevant family history pertinent to the presenting complaint Exam Narrative: GENERAL: Well-appearing and in no acute distress. HEAD: Normocephalic EYES: EOMI. . ENT: Mucous membranes pink and moist. NECK: Normal AROM. Supple. CHEST: No respiratory distress. Clear to auscultation. HEART: Regular rate and rhythm. ABDOMEN: Sof
== END 2023-01-18 10:05 | disposition home or self-care (01) ==
PROVIDERS: Emergency Provider Nurse Practitioner Family; PCP Family Medicine
DX: N39.0 Urinary tract infection, site not specified (principal); B96.20 Unspecified Escherichia coli [E. coli] as the cause of diseases classified elsewhere; E06.3 Autoimmune thyroiditis; E78.5 Hyperlipidemia, unspecified; E55.9 Vitamin D deficiency, unspecified
CPT/HCPCS: 81003; 87077; 87086; 87186; 99213; G0463

== ENCOUNTER 2023-03-07 18:02 | Emergency (ER) | payer OTHER, SELFPAY ==
--- NOTE | 2023-03-07 18:09 | ED.FEMALEGU ---
HPI - Female Genitourinary General Chief complaint: Urogenital-Female Stated complaint: UTI SYMPTOMS Time Seen by Provider: 03/07/23 18:36 Source: patient, RN notes reviewed and old records reviewed Mode of arrival: ambulatory Limitations: no limitations History of Present Illness HPI Narrative: 62-year-old female presents to the [facility] with concerns for a UTI. Patient states today she started with some urgency and burning with urination. Has a history of UTI No treatment prior to arrival Onset (ago): hour(s) Related Data Home Medications Medication Instructions Recorded Confirmed calcium carbonate 600 mg calcium 600 mg PO DAILY 04/08/19 03/07/23 (1,500 mg) tablet (Calcium) cholecalciferol (vitamin D3) 75 3,000 unit PO DAILY 04/08/19 03/07/23 mcg (3,000 unit) tablet Allergies Allergy/AdvReac Type Severity Reaction Status Date / Time azithromycin Allergy Intermediate Diarrhea Verified 03/07/23 18:15 Review of Systems Review of Systems: All systems reviewed & are unremarkable except as noted in HPI and below Constitutional: Constitutional: Reports no additional constitutional complaints Eyes: Eyes: Reports no additional eye complaints ENT: Reports system reviewed and no additional complaints, except as documented Cardiovascular: Cardiovascular: Reports no additional cardiovascular complaints, Denies chest pain and Denies dyspnea Respiratory: Respiratory: Reports no additional respiratory complaints, Denies chest congestion, Denies cough and Denies dyspnea Gastrointestinal: Gastrointestinal: Reports no additional gastrointestinal complaints, Denies abdominal pain, Denies nausea and Denies vomiting Genitourinary: Genitourinary: Reports as per HPI and Reports dysuria Musculoskeletal: Musculoskeletal: Reports no additional musculoskeletal complaints Integumentary/Breasts: Skin/Breast: Reports system reviewed and no additional complaints, except as docu Neurologic: Reports system reviewed and no additional complaints, except as documented Psychiatric: Psychiatric: Reports no additional psychiatric complaints Allergic/Immunologic: Allergic/Immunologic: Reports no additional allergic/immunologic complaints 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 History of vaginal delivery x 3 Hyperlipidemia Hyperlipidemia Vitamin D deficiency Surgical History Surgical History H/O sinus surgery deviated septum 04/05/22 [place] teeth removed Family History Family History Mother Family history of osteoporosis Family history of malignant neoplasm of thyroid Family history of malignant neoplasm of breast in first degree relative, Onset Age: 64 Patient's mother is Sibling Asthma Family history of diabetes mellitus in first degree relative Grandparent Family history of alcoholism Cerebrovascular accident Father Family history of diabetes mellitus in first degree relative Patient's father is Diabetes mellitus Family history of type 2 diabetes mellitus, Onset Age: 76 Hypertension Heart disease Sibling Diabetes mellitus Depression Daughter Thyroid disorder Social History Social History Smoking status: Never smoker Second hand tobacco smoke exposure: No Alcohol intake: former Drinks per week: 1 Alcohol use details: 1 PER MONTH Substance use: never Substance use type: does not use Lack of Transportation: No Lack of Food: Never True Current Housing: I Have Housing Concerned About Future Housing: No Difficulty Paying Gas/Electric Bills: No Difficulty Paying for Meds: No Currently Unemploye
[2023-03-07 18:18] VITALS: BP 105/68; PULSE 78; RESP 16; TEMP 36.9; O2SAT 98
== END 2023-03-07 18:49 | disposition home or self-care (01) ==
PROVIDERS: Emergency Provider Nurse Practitioner; PCP Family Medicine
DX: N39.0 Urinary tract infection, site not specified (principal); B96.20 Unspecified Escherichia coli [E. coli] as the cause of diseases classified elsewhere; E06.3 Autoimmune thyroiditis; E78.5 Hyperlipidemia, unspecified; E55.9 Vitamin D deficiency, unspecified
CPT/HCPCS: 81003; 87077; 87086; 87186; 99213; G0463

== ENCOUNTER 2023-03-30 09:51 | Emergency (ER) | payer OTHER, SELFPAY ==
--- NOTE | 2023-03-30 10:01 | ED.FEMALEGU ---
HPI - Female Genitourinary General Chief complaint: Urogenital-Female Stated complaint: UTI SYMPTOMS Time Seen by Provider: 03/30/23 10:11 Source: patient and RN notes reviewed Mode of arrival: ambulatory Limitations: no limitations History of Present Illness HPI Narrative: 62-year-old female presents with concern for malodorous urine, urine frequency, dysuria that started yesterday. She reports history of UTI at the beginning of the month. She denies fever, chills, back pain, abdominal pain, nausea, vomiting. MD elicited complaint: UTI Related Data Home Medications Medication Instructions Recorded Confirmed calcium carbonate 600 mg calcium 600 mg PO DAILY 04/08/19 03/30/23 (1,500 mg) tablet (Calcium) cholecalciferol (vitamin D3) 75 3,000 unit PO DAILY 04/08/19 03/30/23 mcg (3,000 unit) tablet Allergies Allergy/AdvReac Type Severity Reaction Status Date / Time azithromycin Allergy Intermediate Diarrhea Verified 03/30/23 10:01 Review of Systems Review of Systems: CONSTITUTIONAL: Denies malaise, chills, sweats, or fever. CARDIOVASCULAR: Denies chest pain, palpitations, or edema. RESPIRATORY: Denies cough or dyspnea. GASTROINTESTINAL: Denies abdominal pain, nausea, vomiting, diarrhea GENITOURINARY: Reports dysuria, frequency. Denies flank pain or hematuria. SKIN: Denies rash or itching. MUSCULOSKELETAL: Denies back pain or myalgia. 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 History of vaginal delivery x 3 Hyperlipidemia Hyperlipidemia Vitamin D deficiency Surgical History Surgical History H/O sinus surgery deviated septum 04/05/22 [place] teeth removed Family History Family History Mother Family history of osteoporosis Family history of malignant neoplasm of thyroid Family history of malignant neoplasm of breast in first degree relative, Onset Age: 64 Patient's mother is Sibling Asthma Family history of diabetes mellitus in first degree relative Grandparent Family history of alcoholism Cerebrovascular accident Father Family history of diabetes mellitus in first degree relative Patient's father is Diabetes mellitus Family history of type 2 diabetes mellitus, Onset Age: 76 Hypertension Heart disease Sibling Diabetes mellitus Depression Daughter Thyroid disorder Social History Social History Smoking status: Never smoker Second hand tobacco smoke exposure: No Alcohol intake: former Drinks per week: 1 Alcohol use details: 1 PER MONTH Substance use: never Substance use type: does not use Lack of Transportation: No Lack of Food: Never True Current Housing: I Have Housing Concerned About Future Housing: No Difficulty Paying Gas/Electric Bills: No Difficulty Paying for Meds: No Currently Unemployed: No Education: Bachelor's Degree Difficulty w/ Childcare or Family Care: No Living arrangements: with family Gender identity (if verbalized by the patient): Female Spiritual care concerns: No Comments At time of signature, agree with nursing past medical, surgical, social and family history. There is no relevant family history pertinent to the presenting complaint Exam Narrative: GENERAL: Well-appearing, well-nourished, and in no acute distress. HEAD: Normocephalic. EYES: PERRLA, conjunctivae clear. NECK: Supple. No lymphadenopathy CHEST: Clear to auscultation. No respiratory distress. HEART: Regular rate and rhythm. ABDOMEN: Soft, nontender upon palpation, nondistended, normal activ
[2023-03-30 10:03] VITALS: BP 105/75; PULSE 77; RESP 16; TEMP 36.6; O2SAT 100
== END 2023-03-30 10:19 | disposition home or self-care (01) ==
PROVIDERS: Emergency Provider Nurse Practitioner; PCP Family Medicine
DX: N39.0 Urinary tract infection, site not specified (principal); B96.20 Unspecified Escherichia coli [E. coli] as the cause of diseases classified elsewhere; E06.3 Autoimmune thyroiditis; E78.5 Hyperlipidemia, unspecified; E55.9 Vitamin D deficiency, unspecified
CPT/HCPCS: 81003; 87077; 87086; 87186; 99213; G0463

== ENCOUNTER 2023-12-31 12:23 | Emergency (ER) | payer OTHER, SELFPAY ==
[2023-12-31 12:37] VITALS: BP 109/74; PULSE 78; RESP 16; TEMP 36.6; O2SAT 100
--- NOTE | 2023-12-31 12:48 | ED_ITS ---
HPI - Female Genitourinary General Chief complaint: Urogenital-Female Stated complaint: Urine irritation Time Seen by Provider: 12/31/23 12:48 Source: patient Mode of arrival: ambulatory Limitations: no limitations History of Present Illness HPI Narrative: 63-year-old female presents with complaint of urinary urgency, dysuria that started this morning. Denies nausea vomiting, chills. No abdominal or back pain. Patient concern for urinary tract infection. All systems reviewed and negative except as noted above. Related Data Home Medications Medication Instructions Recorded Confirmed calcium carbonate (Calcium 600) 600 mg PO DAILY 04/08/19 12/31/23 cholecalciferol (vitamin D3) 75 3,000 unit PO DAILY 04/08/19 12/31/23 mcg (3,000 unit) tablet Allergies Allergy/AdvReac Type Severity Reaction Status Date / Time azithromycin Allergy Intermediate Diarrhea Verified 12/31/23 12:55 Review of Systems Review of Systems: CONSTITUTIONAL: Denies fever, chills, or sweats. EYES: Denies visual changes, redness, or discharge. ENT: Denies rhinorrhea, congestion, sore throat, or otalgia. CARDIOVASCULAR: Denies chest pain, palpitations, or edema. RESPIRATORY: Denies cough or dyspnea. GASTROINTESTINAL: Denies abdominal pain, nausea, vomiting, or diarrhea. GENITOURINARY: Reports dysuria, frequency, urgency. Denies hematuria. SKIN: Denies rash or itching. MUSCULOSKELETAL: Denies back pain, joint pain, or myalgia. NEUROLOGIC: Denies headache, numbness, or weakness. PSYCHIATRIC: Denies anxiety or depression. All other systems reviewed are negative, except as documented in HPI. 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 History of vaginal delivery x 3 Hyperlipidemia Hyperlipidemia Vitamin D deficiency Surgical History Surgical History H/O sinus surgery deviated septum 04/05/22 [place] teeth removed Family History Family History Mother Family history of osteoporosis Family history of malignant neoplasm of thyroid Family history of malignant neoplasm of breast in first degree relative, Onset Age: 64 Patient's mother is Sibling Asthma Family history of diabetes mellitus in first degree relative Grandparent Family history of alcoholism Cerebrovascular accident Father Family history of diabetes mellitus in first degree relative Patient's father is Diabetes mellitus Family history of type 2 diabetes mellitus, Onset Age: 76 Hypertension Heart disease Sibling Diabetes mellitus Depression Daughter Thyroid disorder Social History Social History Smoking status: Never smoker Second hand tobacco smoke exposure: No Alcohol intake: former Drinks per week: 1 Alcohol use details: 1 PER MONTH Substance use: never Substance use type: does not use Lack of Transportation: No Lack of Food: Never True Current Housing: I Have Housing Concerned About Future Housing: No Difficulty Paying Gas/Electric Bills: No Difficulty Paying for Meds: No Currently Unemployed: No Education: Bachelor's Degree Difficulty w/ Childcare or Family Care: No Living arrangements: with family Gender identity (if verbalized by the patient): Female Spiritual care concerns: No Comments At time of signature, agree with nursing past medical, surgical, social and family history. There is no relevant family history pertinent to the presenting complaint. Exam Narrative: GENERAL: This is a well-nourished, well-developed patient, in no apparent distress. HEAD: normocephalic, atraumatic. EYES: PERRL. Sclera clear/white. Vision is grossly intact. EARS: External ears normal NOSE: External nose normal NECK: Neck supple, non-tender without lymphadenopathy, masses or thyromegaly. CARDIOVASCULAR: Regular rate and rhythm without murmurs, gallops, or rubs. RESPIRATORY: Clear to auscultation. Breath sounds equal bilaterally. No wheezes, rales, or rhonchi. SKIN: warm, Dry, intact with no suspicious lesions or rash, good texture and turgor. NEURO: awake, alert, and oriented to person, place and time. There were no obvious focal neurologic abnormalities. EXTREMITIES: No joint tenderness, effusion, or edema noted. Course Course Level of Care: Express Care Visit Vital Signs Vital signs: Vital Signs Temperature 36.6 C 12/31/23 12:37 Pulse Rate 78 12/31/23 12:37 Respiratory Rate 16 12/31/23 12:37 Blood Pressure 109/74 12/31/23 12:37 Pulse Oximetry 100 12/31/23 12:37 Temperature 36.6 C 12/31/23 12:37 Pulse Rate 78 12/31/23 12:37 Respiratory Rate 16 12/31/23 12:37 Blood Pressure 109/74 12/31/23 12:37 Pulse Oximetry 100 12/31/23 12:37 Review MDM - Female Genitourinary MDM Narrative Medical decision making narrative: Patient is aware of diagnosis, understands and agrees to treatment plan. Anticipatory guidance given. Patient agrees to follow-up as directed and is aware of reasons to seek care at the emergency department. Portions of this record may have been created with voice recognition software Urinalysis trace leukocytes. Will treat patient for urinary tract infection due to patient's symptoms. Urine culture ordered. Lab Data Labs: Lab Results 12/31/23 Range/Units 12:53 POC Urine Color Light/pale POC Urine Clarity Clear POC Urine pH 6.5 POC Ur Specif [place] 1.010 POC Urine Protein Negative (Negative) POC Ur Glucose (UA) Negative (Negative) POC Urine Ketones Negative (Negative) POC Urine Blood Negative (Negative) POC Urine Nitrite Negative (Negative) POC Urine Bilirubin Negative (Negative) POC Urine Urobilinogen 0.2 POC U Leukocyte Esteras Trace (Negative) Discharge Plan Discharge Clinical Impression: Urinary tract infection Qualifiers: Urinary tract infection type: site unspecified Hematuria presence: without hematuria Qualified Code(s): N39.0 - Urinary tract infection, site not specified Patient Disposition: Home, Self-Care Condition: Stable Instructions: Antibiotic Form, Urinary Tract Infection in Women (ED) Additional Instructions: Take antibiotic as prescribed until gone. Take ibuprofen or tylenol every 6 to 8 hours as needed for pain. Drink at least 64 ounces of water a day. Follow-up with your doctor as needed. Prescriptions: New amoxicillin-pot clavulanate [Augmentin] 500-125 mg tablet 1 tablet PO BID 5 Days Qty: 10 0RF No Action calcium carbonate [Calcium 600] 600 mg calcium (1,500 mg) tablet 600 mg PO DAILY cholecalciferol (vitamin D3) 3,000 unit tablet 3,000 unit PO DAILY omeprazole 40 mg capsule,delayed release(DR/EC) 40 mg PO DAILY 90 Days Qty: 90 3RF alendronate 70 mg tablet 70 mg PO WEEKLY Qty: 12 0RF Follow-up/Referrals: Thomas Gotti MD [Primary Care Provider] - Time of Disposition: 12:55
[2023-12-31 12:56] LABS: EDUAAPPEAR Clear; EDUABILI Negative (Negative); EDUABLOOD Negative (Negative); EDUACOLOR1 Light/Pale; EDUAGLUCOSE Negative (Negative); EDUAKETONE Negative (Negative); EDUALEUKO Trace (Negative); EDUANITRATE Negative (Negative); EDUAPH 6.5; EDUAPROTEIN Negative (Negative); EDUAUROBILI 0.2
== END 2023-12-31 13:00 | disposition home or self-care (01) ==
PROVIDERS: Emergency Provider Nurse Practitioner Family; PCP Family Medicine
DX: N39.0 Urinary tract infection, site not specified (principal); E06.3 Autoimmune thyroiditis; E78.5 Hyperlipidemia, unspecified; E55.9 Vitamin D deficiency, unspecified
CPT/HCPCS: 81003; 87086; 99213; G0463

== ENCOUNTER 2024-01-21 14:09 | Outpatient (CLI) | payer OTHER, SELFPAY ==
--- NOTE | ~2024-01-21 | DEXA_ITS ---
Bone Density Report Name: DEANNA JUSTIN Age: 63 Sex: Female Ethnicity: White Date of : 1960 Indication: postmenopausal osteoporosis; monitoring treatment; parental hip fracture; height loss; Referring Provider: MAHENDRA CELESTE Study: Bone densitometry was performed. Exam Date: January 21, 2024 Accession number: [id number] Bone Density: Region BMD T-score Z-score Classification AP Spine(L1-L4) 0.818 -2.1 -0.6 Osteopenia Femoral Neck (Left) 0.533 -2.8 -1.5 Osteoporosis Total Hip (Left) 0.712 -1.9 -0.9 Osteopenia Femoral Neck (Right) 0.569 -2.5 -1.2 Osteoporosis Total Hip (Right) 0.695 -2.0 -1.0 Osteopenia Total Hip Mean 0.703 -2.0 -1.0 Osteopenia World Health Organization criteria for BMD impression classify patients as: Normal (T-score at or above -1.0), Osteopenia (T-score between -1.0 and -2.5), or Osteoporosis (T-score at or below -2.5). 10-year Fracture Risk: FRAX not reported because: Some T-score for Spine Total or Hip Total or Femoral Neck at or below -2.5 Treated for osteoporosis Previous Exams: Region Exam Age BMD T-score BMD Change BMD Change Date g/cm2 vs Baseline vs Previous AP Spine (L1-L4) 01/21/2024 63 0.818 -2.1 -0.122 (-13.0% 0.049 (6.4%)* 11/06/2021 61 0.769 -2.5 -0.171 (-18.2% -0.165 (-17.6% 04/29/2018 57 0.934 -1.0 -0.006 (-0.6%) 0.043 (4.8%)* 06/16/2015 54 0.891 -1.4 -0.049 (-5.2%) -0.049 (-5.2%) 05/04/2013 52 0.940 -1.0 Total Hip(Left) 01/21/2024 63 0.712 -1.9 -0.044 (-5.9%) 0.045 (6.8%)* 11/06/2021 61 0.667 -2.3 -0.090 (-11.8% -0.091 (-12.0% 04/29/2018 57 0.757 -1.5 0.001 (0.2%)# -0.003 (-0.4%) 06/16/2015 54 0.760 -1.5 0.004 (0.6%)# 0.004 (0.6%)# 05/04/2013 52 0.756 -1.5 Total Hip(Right) 01/21/2024 63 0.695 -2.0 -0.089 (-11.3% 0.035 (5.3%)* 11/06/2021 61 0.660 -2.3 -0.124 (-15.8% -0.084 (-11.3% 04/29/2018 57 0.744 -1.6 -0.039 (-5.0%) -0.011 (-1.5%) 06/16/2015 54 0.756 -1.5 -0.028 (-3.6%) -0.028 (-3.6%) 05/04/2013 52 0.784 -1.3 *Denotes significance at 95% confidence level, LSC for AP Spine = 0.022 g/cm2, LSC for Total Hip = 0.027 g/cm2 # Denotes dissimilar scan types or analysis methods Clinical Information Provided by Patient: Parent has had a hip fracture Is being treated for osteoporosis Has used the following medications: Fosamax (i.e. alendronate) Patient maximum height was 66.0 No regular weight bearing exercise Drinks caffeinated beverages Onset of menses at age 16 Number of children 3 Impression: The patient has osteoporosis, based on the Left Femoral Neck T-score. The patient has risk factors, including: parental hip fracture. No significant bone loss was observed. Discussion: PATIENT UNDER TREATMENT WITH NO SIGNIFICANT BMD LOSS SINCE LAST EXAM. In an untreated patient, BMD typically declines with age. A lack of decline or gain is usually a sign that treatment is efficacious and fracture risk is reduced. It is important to ask patients whether they are taking their medications and to encourage continued and appropriate compliance with their osteoporosis therapies to reduce fracture risk. It is also important to review their risk factors and encourage appropriate calcium and vitamin D intakes, exercise, fall prevention and other lifestyle measures. Follow-Up: Consider a repeat BMD and Vertebral Fracture Assessment (VFA) exam in 2 years or sooner if medically necessary, to reassess this patient's status. Reported by: SLAVA on 01/21/2024 2:35:00 PM. Reviewed, dictated and finalized at location ALeanne PERKINS
== END 2024-01-21 14:10 | disposition home or self-care (01) ==
LOC: ANHIMG 14:11
PROVIDERS: PCP Family Medicine; Visit Provider Obstetrics & Gynecology
DX: Z78.0 Asymptomatic menopausal state (principal); M81.0 Age-related osteoporosis without current pathological fracture; M85.88 Other specified disorders of bone density and structure, other site; M85.852 Other specified disorders of bone density and structure, left thigh; M85.851 Other specified disorders of bone density and structure, right thigh
CPT/HCPCS: 77080

== ENCOUNTER 2024-02-26 09:14 | Emergency (ER) | payer OTHER, SELFPAY ==
[2024-02-26 09:53] VITALS: BP 98/66; PULSE 83; RESP 16; TEMP 36.5; O2SAT 100
--- NOTE | 2024-02-26 10:01 | ED.FEMALEGU ---
HPI - Female Genitourinary General Chief complaint: Urogenital-Female Stated complaint: UTI Time Seen by Provider: 02/26/24 10:00 Source: patient Mode of arrival: ambulatory Limitations: no limitations History of Present Illness HPI Narrative: Paige is a 63-year-old female patient presenting to the clinic today with complaints of possible UTI. She reports she is having burning with urination, frequency, and bladder discomfort x2 days. No known fever or chills. Denies any flank pain. No vaginal discharge or odor. Has not taken anything for her symptoms Related Data Home Medications ?Medication ?Instructions ?Recorded ?Confirmed ?Last Taken ?Type calcium carbonate (Calcium 600) 600 mg PO DAILY 04/08/19 02/26/24 04/03/22 History cholecalciferol (vitamin D3) 75 3,000 unit PO DAILY 04/08/19 02/26/24 06/12/23 11:35 History mcg (3,000 unit) tablet Allergies Allergy/AdvReac Type Severity Reaction Status Date / Time azithromycin Allergy Intermediate Diarrhea Verified 02/26/24 09:48 Review of Systems Review of Systems: Pertinent positives per HPI. Patient denies any fever, chills, rash, headache, visual changes, dizziness, cough, runny nose, sore throat, shortness of breath, chest pain, palpitations, nausea, vomiting, diarrhea, constipation, abdominal pain. 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 Vitamin D deficiency History of vaginal delivery x 3 Surgical History Surgical History H/O sinus surgery deviated septum 04/05/22 [place] teeth removed Family History Family History Mother Family history of osteoporosis Family history of malignant neoplasm of thyroid Family history of malignant neoplasm of breast in first degree relative, Onset Age: 64 Patient's mother is Sibling Asthma Family history of diabetes mellitus in first degree relative Grandparent Family history of alcoholism Cerebrovascular accident Father Family history of diabetes mellitus in first degree relative Patient's father is Diabetes mellitus Family history of type 2 diabetes mellitus, Onset Age: 76 Hypertension Heart disease Sibling Diabetes mellitus Depression Daughter Thyroid disorder Social History Social History Smoking status: Never smoker Second hand tobacco smoke exposure: No Alcohol intake: former Drinks per week: 1 Alcohol use details: 1 PER MONTH Substance use: never Substance use type: does not use Lack of Transportation: No Lack of Food: Never True Current Housing: I Have Housing Concerned About Future Housing: No Difficulty Paying Gas/Electric Bills: No Difficulty Paying for Meds: No Currently Unemployed: No Education: Bachelor's Degree Difficulty w/ Childcare or Family Care: No Living arrangements: with family Gender identity (if verbalized by the patient): Female Spiritual care concerns: No Comments At the time of my signature, I reviewed and agree with the nursing past medical, surgical, social, and family history. There is no relevant family history pertinent to the patient complaint. Exam Narrative: General: Well-developed, well nourished, in no apparent distress. Head: Normocephalic, atraumatic. Cardio: Regular rate and rhythm, s1 and s2 normal, no murmur appreciated. Resp: Clear to auscultation bilaterally, no rhonchi, rales, wheezing or rubs. Abdomen: Soft, pliable, bowel sounds present in all quadrants, suprapubic tender to palpation, no organomegly, no CVAT tenderness. Course Course Emergency Course: Portions of this record may have been created with voice recognition software. Level of Care: Express Care Visit Vital Signs Vital signs: Vital Signs Temperature 36.5 C 02/26/24 09:53 Pulse Rate 83 02/26/24 09:53 Respiratory Rate 16 02/26/24 09:53 Blood Pressure 98/66 L 02/26/24 09:53 Pulse Oximetry 100 02/26/24 09:53 Temperature 36.5 C 02/26/24 09:53 Pulse Rate 83 02/26/24 09:53 Respiratory Rate 16 02/26/24 09:53 Blood Pressure 98/66 L 02/26/24 09:53 Pulse Oximetry 100 02/26/24 09:53 Vital signs reviewed MDM - Female Genitourinary MDM Narrative Medical decision making narrative: At the time of visit patient is resting comfortably on the exam table. Patient appears to be nontoxic. Labs: Urinalysis positive for leukocytes and blood. We will send for culture. Plan: I suspect patient has acute cystitis. Prescription for Bactrim was sent to the pharmacy. Supportive measures were discussed with the patient and they voiced understanding discharge instructions and agrees to treatment plan. Return precautions reviewed Differential Diagnosis Differential diagnosis: Likely urinary tract infection and cystitis Lab Data Labs: Lab Results 02/26/24 Range/Units 10:03 POC Urine Color Pending POC Urine Clarity Pending POC Urine pH Pending POC Ur Specif [place] Pending POC Urine Protein Pending POC Ur Glucose (UA) Pending POC Urine Ketones Pending POC Urine Blood Pending POC Urine Nitrite Pending POC Urine Bilirubin Pending POC Urine Urobilinogen Pending POC U Leukocyte Esteras Pending Discharge Plan Discharge Clinical Impression: Urinary tract infection Qualifiers: Urinary tract infection type: acute cystitis Hematuria presence: with hematuria Qualified Code(s): N30.01 - Acute cystitis with hematuria Patient Disposition: Home, Self-Care Condition: Stable Instructions: Antibiotic Form, Urinary Tract Infection in Women (ED) Additional Instructions: Urinalysis shows leukocytes and blood in your urine. We will send urine for culture. Take Bactrim as prescribed Increase fluids and stay well hydrated Wipe front to back. May use wet wipes. Avoid tub baths If sexually active- pee before and after intercourse. Wear cotton panties Avoid tight clothing up against the genitals Follow up with your PCP in 1 week if symptoms persist. Patient Language: Hungarian Prescriptions: New sulfamethoxazole-trimethoprim [Bactrim DS] 800-160 mg tablet 1 tablet PO Q12H 7 Days Qty: 14 0RF No Action amoxicillin-pot clavulanate [Augmentin] 500-125 mg tablet 1 tablet PO BID 5 Days Qty: 10 0RF calcium carbonate [Calcium 600] 600 mg calcium (1,500 mg) tablet 600 mg PO DAILY cholecalciferol (vitamin D3) 3,000 unit tablet 3,000 unit PO DAILY omeprazole 40 mg capsule,delayed release(DR/EC) 40 mg PO DAILY 90 Days Qty: 90 3RF alendronate 70 mg tablet 70 mg PO WEEKLY Qty: 12 0RF Follow-up/Referrals: Thomas Gotti MD [Primary Care Provider] - Time of Disposition: 10:03 Quality NIHSS Nursing Documentation ED NIHSS nursing documentation: reviewed/agree
[2024-02-26 10:05] LABS: EDUAAPPEAR Clear; EDUABILI Negative (Negative); EDUABLOOD 2+ (Negative); EDUACOLOR1 Yellow; EDUAGLUCOSE Negative (Negative); EDUAKETONE Negative (Negative); EDUALEUKO 1+ (Negative); EDUANITRATE Negative (Negative); EDUAPH 6.5; EDUAPROTEIN Negative (Negative); EDUAUROBILI 0.2
== END 2024-02-26 10:06 | disposition home or self-care (01) ==
PROVIDERS: Emergency Provider Nurse Practitioner Family; PCP Family Medicine
DX: N30.01 Acute cystitis with hematuria (principal); E78.5 Hyperlipidemia, unspecified; E55.9 Vitamin D deficiency, unspecified; E06.3 Autoimmune thyroiditis
CPT/HCPCS: 81003; 87077; 87086; 87186; 99213; G0463

== ENCOUNTER 2024-06-03 09:48 | Emergency (ER) | payer OTHER, SELFPAY ==
[2024-06-03 09:59] VITALS: BP 107/72; PULSE 66; RESP 16; TEMP 36.6; O2SAT 100
[2024-06-03 10:06] LABS: EDUAAPPEAR Clear; EDUABILI Negative (Negative); EDUABLOOD Negative (Negative); EDUACOLOR1 Yellow; EDUAGLUCOSE Negative (Negative); EDUAKETONE Negative (Negative); EDUALEUKO Trace (Negative); EDUANITRATE Negative (Negative); EDUAPH 7.5; EDUAPROTEIN Negative (Negative); EDUAUROBILI 0.2
--- NOTE | 2024-06-03 10:10 | ED.FEMALEGU ---
HPI - Female Genitourinary General Chief complaint: Urogenital-Female Stated complaint: Uti Symptoms Time Seen by Provider: 06/03/24 10:01 Source: patient and RN notes reviewed Mode of arrival: ambulatory Limitations: no limitations History of Present Illness HPI Narrative: Patient presents today complaining of dysuria, urgency, and malodorous urine. Symptoms began slightly a few days ago bit significantly worsened this morning. Patient tried to increase her water intake without improvement of symptoms. Related Data Home Medications ?Medication ?Instructions ?Recorded ?Confirmed ?Last Taken ?Type calcium carbonate (Calcium 600) 600 mg PO DAILY 04/08/19 06/03/24 04/03/22 History cholecalciferol (vitamin D3) 75 3,000 unit PO DAILY 04/08/19 06/03/24 06/12/23 11:35 History mcg (3,000 unit) tablet Allergies Allergy/AdvReac Type Severity Reaction Status Date / Time azithromycin Allergy Intermediate Diarrhea Verified 06/03/24 09:57 Review of Systems Review of Systems: CONSTITUTIONAL: Denies body aches, fever, chills, or sweats. EYES: Denies visual changes, redness, or discharge. ENT: Denies rhinorrhea, congestion, sore throat, or otalgia. CARDIOVASCULAR: Denies chest pain, palpitations, or edema. RESPIRATORY: Denies cough or dyspnea. GASTROINTESTINAL: Denies abdominal pain, nausea, vomiting, or diarrhea. GENITOURINARY: + dysuria, urgency, malodorous urine SKIN: Denies rash, itching, or wounds. MUSCULOSKELETAL: Denies back pain, joint pain, or myalgia. NEUROLOGIC: Denies headache, numbness, tingling, or weakness. PSYCH: Denies depression or anxiety. [facility]LY [facility] Past Medical History Medical History Hyperlipidemia Chronic sinusitis Gastritis determined by biopsy Dyspepsia Dysphagia Colon cancer screening Hyperlipidemia 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 Vitamin D deficiency History of vaginal delivery x 3 Surgical History Surgical History H/O sinus surgery deviated septum 04/05/22 [place] teeth removed Family History Family History Mother Family history of osteoporosis Family history of malignant neoplasm of thyroid Family history of malignant neoplasm of breast in first degree relative, Onset Age: 64 Patient's mother is Sibling Asthma Family history of diabetes mellitus in first degree relative Grandparent Family history of alcoholism Cerebrovascular accident Father Family history of diabetes mellitus in first degree relative Patient's father is Diabetes mellitus Family history of type 2 diabetes mellitus, Onset Age: 76 Hypertension Heart disease Sibling Diabetes mellitus Depression Daughter Thyroid disorder Social History Social History Smoking status: Never smoker Second hand tobacco smoke exposure: No Alcohol intake: former Drinks per week: 1 Alcohol use details: 1 PER MONTH Substance use: never Substance use type: does not use Lack of Transportation: No Lack of Food: Never True Current Housing: I Have Housing Concerned About Future Housing: No Difficulty Paying Gas/Electric Bills: No Difficulty Paying for Meds: No Currently Unemployed: No Education: Bachelor's Degree Difficulty w/ Childcare or Family Care: No Living arrangements: with family Gender identity (if verbalized by the patient): Female Spiritual care concerns: No Comments At time of signature, I have reviewed and agree with nursing past medical, surgical, social and family history unless otherwise noted. Please see nursing chart for further information. There is no relevant family history pertinent to the presenting complaint Exam Narrative: GENERAL: Well-appearing, well-nourished, and in no acute distress. HEAD: Normocephalic, atraumatic. EYES: EOMI. No redness or drainage. Conjunctivae normal. ENT: Mucous membranes pink and moist. NECK: Normal AROM. CHEST: No respiratory distress. Clear to auscultation. HEART: Regular rate and rhythm. No murmur appreciated. ABDOMEN: Soft, nontender, nondistended, normal active bowel sounds. EXTREMITIES: Normal range of motion. No edema. SKIN: Warm, dry, no rash. Capillary refill normal. Normal skin turgor. NEURO: No focal deficits. Alert and oriented x3. Gait steady. PSYCH: Normal affect. No signs of depression or anxiety. Course Course Level of Care: Express Care Visit Vital Signs Vital signs: Vital Signs Temperature 97.9 F 06/03/24 09:59 Pulse Rate 66 06/03/24 09:59 Respiratory Rate 16 06/03/24 09:59 Blood Pressure 107/72 06/03/24 09:59 Pulse Oximetry 100 06/03/24 09:59 Oxygen Delivery Room Air 06/03/24 09:59 Temperature 97.9 F 06/03/24 09:59 Pulse Rate 66 06/03/24 09:59 Respiratory Rate 16 06/03/24 09:59 Blood Pressure 107/72 06/03/24 09:59 Pulse Oximetry 100 06/03/24 09:59 Oxygen Delivery Room Air 06/03/24 09:59 Reviewed MDM - Female Genitourinary MDM Narrative Medical decision making narrative: Urinalysis shows only trace leukocytes. Culture pending. Due to patient's symptoms, will start on Augmentin and call with culture results. She will stop them if cx is negative. Patient agrees with plan. Anticipatory guidance given. Differential Diagnosis Differential diagnosis: Likely urinary tract infection, vaginitis, cystitis and other (interstitial cystitis) Lab Data Attestation: I reviewed the patient's lab results. Labs: Lab Results 06/03/24 Range/Units 10:00 POC Urine Color Yellow POC Urine Clarity Clear POC Urine pH 7.5 POC Ur Specif [place] 1.010 POC Urine Protein Negative (Negative) POC Ur Glucose (UA) Negative (Negative) POC Urine Ketones Negative (Negative) POC Urine Blood Negative (Negative) POC Urine Nitrite Negative (Negative) POC Urine Bilirubin Negative (Negative) POC Urine Urobilinogen 0.2 POC U Leukocyte Esteras Trace (Negative) Critical Care Time Critical Care Time Critical Care Time: No Discharge Plan Discharge Clinical Impression: UTI symptoms Patient Disposition: Home, Self-Care Condition: Stable Instructions: Antibiotic Form Additional Instructions: Please take the Augmentin as prescribed. You may also take some azo or Uristat to help with your burning with urination. Your urine will be sent to the hospital for culture and you will be notified of the results in a few days. Drink plenty of water to help dilute your urine. Follow-up with your PCP or urologist for further evaluation. Go to the ER immediately if you develop worsening symptoms such as fever, vomiting, sweats or chills, severe abdominal or back pain. Patient Language: Hebrew Prescriptions: New amoxicillin-pot clavulanate 875-125 mg tablet 1 tablet PO Q12H 7 Days Qty: 14 0RF No Action calcium carbonate [Calcium 600] 600 mg calcium (1,500 mg) tablet 600 mg PO DAILY cholecalciferol (vitamin D3) 3,000 unit tablet 3,000 unit PO DAILY omeprazole 40 mg capsule,delayed release(DR/EC) 40 mg PO DAILY 90 Days Qty: 90 3RF Follow-up/Referrals: PHYSICIAN,EYELET OPERATOR [Primary Care Provider] - Time of Disposition: 10:20
== END 2024-06-03 10:22 | disposition home or self-care (01) ==
PROVIDERS: Emergency Provider Nurse Practitioner
DX: R30.0 Dysuria (principal); E78.5 Hyperlipidemia, unspecified; R82.998 Other abnormal findings in urine; E06.3 Autoimmune thyroiditis; E55.9 Vitamin D deficiency, unspecified; R39.15 Urgency of urination
CPT/HCPCS: 81003; 87086; 99213; G0463